=== PATIENT | female | born 1995 | race Caucasian/White ===

== ENCOUNTER → 2020-06-23 | Outpatient (CLI) | payer BC ==
--- NOTE | 2020-06-24 06:38 | MR ---
EXAMINATION TYPE: MR brain wo con DATE OF EXAM: 06/23/2020 COMPARISON: NONE HISTORY: Disc edema, abnormal exam by commercial truck driver. Optic nerve inflammation per patient. TECHNIQUE: Multiplanar, multisequence imaging of the brain and brainstem is performed without IV cont rast. FINDINGS: Diffusion weighted images demonstrate no evidence of a recent infarct or other diffusion abnormality. There is no extraaxial fluid collection or significant white matter signal abnormality. The ventricu lar system and cisternal spaces are normal in size and appearance. The brain volume is age appropria te. Midline structures demonstrate somewhat empty sella morphology. The craniocervical junction appears within normal limits. Normal vascular flow voids are present. The visualized sinuses are clear. There is some artifact distortion or level of the globes bilaterally. Slight prominence of CSF surrounding optic nerve sheaths. IMPRESSION: Somewhat empty sella morphology with prominence of CSF surrounding optic nerve sheaths bi laterally raising concern for intracranial hypertension. No additional suspicious findings noted. Oth erwise unremarkable study. No suspicious white matter changes noted.
== END | disposition home or self-care (01) ==
LOC: RADMRIMAIN 20:07
PROVIDERS: ATTEND Ophthalmology
DX: H47.11 Papilledema associated with increased intracranial pressure (principal)
CPT/HCPCS: 70551